=== PATIENT | female | born 1945 | race Caucasian/White ===

== ENCOUNTER 2021-01-15 18:29 | Emergency (ER) | payer MEDICARE ==
[~2021-01-15 18:29] MED LIST: 3IN1 COMMODE; ASPIRIN EC81 MG PO; BUSPIRONE HCL15 M1 PO; COMPAZINE10 MG PO; COZAAR 25MG TAB25 MG PO; MELATONIN5 M2 PO; METOPROLOL SUCC50 MG PO; MOVANTIK25 MG PO; OMEPRAZOLE40 MG PO; OXYCONTIN30 MG PO; PERCOCET 10/321 EACH PO; SUMATRIPTAN SU100 MG PO; TOPIRAMATE25 MG PO; VENLAFAXINE HCL75 M1 PO; VOLTAREN **OUT50 MG PO; ZOFRAN4 MG PO
[2021-01-15 19:31] LABS: BILIRUBIN NEGATIVE (NEGATIVE); BLOOD 1+ Ery/uL (NEGATIVE); CLARITY CLEAR (CLEAR); COLOR YELLOW (YELLOW); GLUCOSE (U) NORMAL (NORMAL); LEUKOCYTES NEGATIVE Leu/uL (NEGATIVE); NITRITE NEGATIVE (NEGATIVE); PROTEIN NEGATIVE (NEGATIVE); SPECIFIC GRAVITY 1.025 (1.001-1.030); UROBILINOGEN 0.2 mg/dL (0.2-1.0)
[2021-01-15 19:48] LABS: BACTERIA 1+; MUCOUS TRACE; URINARY WBC RARE
[2021-01-15 19:49] LABS: AMORPHOUS URATES CRYSTALS TRACE
[2021-01-15 20:02] LABS: BASOPHIL 0.4 % (0-2); EOSINOPHIL 0 % (0-7); HCT 41.5 % (37.0-47.0); HGB 14.1 g/dl (12.5-16.0); LYMPHOCYTE 5.6 % (15-48); MCH 32.2 pg (25.0-31.0); MCV 94.7 fL (78.0-100.0); MONOCYTE 2.2 % (0-12); NEUTROPHIL 91.4 % (41-80); NRBC 0; PLT 315 K/uL (150-400); RBC 4.38 M/uL (4.20-5.40); RDW 13.2 % (11.5-14.0); WBC 10.6 K/uL (4.0-10.5)
[2021-01-15 20:51] LABS: LACTIC ACID 0.9 mmol/L (0.4-1.9)
[2021-01-15 20:56] LABS: ACETAMINOPHEN (TYLENOL) < 2.0 ug/mL (10.0-30.0); ALBUMIN 3.5 g/dL (3.4-5.0); ALKALINE PHOSHATASE 120 U/L (46-116); ALT 31 U/L (14-59); AST 20 U/L (15-37); BILIRUBIN - TOTAL 0.3 mg/dL (0.2-1.0); BUN 14 mg/dL (7-18); BUN/CREAT RATIO (CALC) 16.1 RATIO; CHLORIDE 103 mmol/L (98-107); CO2 (BICARBONATE) 25 mmol/L (21-32); CREATININE 0.87 mg/dL (0.51-0.95); GLOBULIN (CALCULATION) 3.7 g/dL; GLUCOSE 131 mg/dL (74-106); LDH 167 U/L (81-234); LIPASE 47 U/L (73-393); MAGNESIUM 2.2 mg/dL (1.8-2.4); POTASSIUM 3.9 mmol/L (3.5-5.1); TOTAL PROTEIN 7.2 g/dL (6.4-8.2)
[2021-01-15 21:34] LABS: BILIRUBIN NEGATIVE (NEGATIVE); BLOOD TRACE-INTACT Ery/uL (NEGATIVE); COLOR YELLOW (YELLOW); GLUCOSE (U) NORMAL (NORMAL); LEUKOCYTES NEGATIVE Leu/uL (NEGATIVE); NITRITE NEGATIVE (NEGATIVE); PROTEIN NEGATIVE (NEGATIVE); SPECIFIC GRAVITY 1.025 (1.001-1.030); UROBILINOGEN 0.2 mg/dL (0.2-1.0)
[2021-01-15 21:44] LABS: AMORPHOUS URATES CRYSTALS LARGE
[2021-01-15 21:48] LABS: CLARITY CLOUDY (CLEAR)
== END 2021-01-16 12:00 | disposition home or self-care (01) ==
LOC: FER 18:29
PROVIDERS: Emergency Medicine
DX: T50.901A Poisoning by unspecified drugs, medicaments and biological substances, accidental (unintentional), initial encounter (principal); Z20.822 Contact with and (suspected) exposure to COVID-19
CPT/HCPCS: 36415; 70470; 70553; 71250; 80053; 81001; 82728; 83605; 83615; 83690; 83735; 84145; 84443; 84484; 85025; 86140; 87040; 87088; 93005; G0480; U0002